=== PATIENT | male | born 1950 | race Caucasian/White ===

== ENCOUNTER → 2016-08-27 | Outpatient (CLI) | payer OTHER | LOC: RAD 14:19 | DX: M17.12 Unilateral primary osteoarthritis, left knee (principal) ==

== ENCOUNTER → 2016-08-30 | Outpatient (CLI) | payer OTHER | LOC: RAD 12:01 | DX: M25.561 Pain in right knee (principal); S83.241A Other tear of medial meniscus, current injury, right knee, initial encounter; X58.XXXA Exposure to other specified factors, initial encounter ==

== ENCOUNTER → 2017-01-06 | Outpatient (CLI) | payer MEDICARE | LOC: LAB 07:39 | DX: Z00.00 Encounter for general adult medical examination without abnormal findings (principal); Z12.5 Encounter for screening for malignant neoplasm of prostate ==

== ENCOUNTER → 2017-01-17 | Outpatient (CLI) | payer MEDICARE | LOC: LAB 10:42 | DX: Z12.11 Encounter for screening for malignant neoplasm of colon (principal); Z00.00 Encounter for general adult medical examination without abnormal findings ==

== ENCOUNTER → 2017-04-04 | Day surgery (SDC) | payer MEDICARE | LOC: MSO 07:21 | DX: R13.10 Dysphagia, unspecified (principal); Z12.11 Encounter for screening for malignant neoplasm of colon; D12.0 Benign neoplasm of cecum; K29.50 Unspecified chronic gastritis without bleeding; R12 Heartburn; M19.90 Unspecified osteoarthritis, unspecified site; K57.30 Diverticulosis of large intestine without perforation or abscess without bleeding | CPT/HCPCS: 00810; A4649; J3010; J7120 ==